=== PATIENT | female | born 1990 | race Hispanic/Latino ===

== ENCOUNTER → 2018-12-13 | Outpatient (CLI) | payer MEDICARE | END | disposition home or self-care (01) | LOC: OIH 09:47 | PROVIDERS: ATTEND Internal Medicine | DX: J44.9 Chronic obstructive pulmonary disease, unspecified (principal) | CPT/HCPCS: 71046 ==

== ENCOUNTER → 2024-02-07 | Outpatient (CLI) | payer MEDICARE | END | disposition home or self-care (01) | LOC: OIH 15:54 | PROVIDERS: ATTEND Internal Medicine | DX: M79.672 Pain in left foot (principal) | CPT/HCPCS: 73620 ==